=== PATIENT | male | born 1970 | race Hispanic/Latino ===

== ENCOUNTER 2017-06-25 15:19 | Emergency (ER) | payer SELFPAY ==
[2017-06-25] MEDS ORDERED: KETOROLAC TROMETHAMINE 30MG/ML ONE (15:58)
== END 2017-06-25 16:47 | disposition home or self-care (01) ==
LOC: EDH 15:19
DX: S20.212A Contusion of left front wall of thorax, initial encounter (principal); W01.198A Fall on same level from slipping, tripping and stumbling with subsequent striking against other object, initial encounter; Y93.89 Activity, other specified; Y92.89 Other specified places as the place of occurrence of the external cause; Y99.8 Other external cause status
CPT/HCPCS: 71046; 71100; 96372; 99284; J1885

== ENCOUNTER 2020-06-19 | Emergency (ER) | payer OTHER ==
[2020-06-19 00:48] LABS: BASOPHILS % (AUTO) 1.1 % (0.0-5.0); EOSINOPHILS % (AUTO) 0.4 % (0.0-8.0); HEMATOCRIT 29.6 % (42-54); LYMPHOCYTES % (AUTO) 12.5 % (21.0-51.0); MEAN CORPUSCULAR HEMOGLOBIN 25.4 pg (27.0-33.0); MEAN CORPUSCULAR HGB CONC 31.4 g/dL (32.0-36.0); MEAN CORPUSCULAR VOLUME 80.9 fL (79-99); MONOCYTES % (AUTO) 13.9 % (3.0-13.0); NEUTROPHILS % (AUTO) 71.7 % (40.0-77.0); PLATELET COUNT (AUTO) 65 K/uL (130-400); RED BLOOD CELL COUNT(AUTO) 3.66 MIL/uL (4.50-6.20); RED CELL DISTRIBUTION WIDTH 15.9 % (11.0-15.5); WHITE BLOOD COUNT (AUTO) 2.8 K/uL (4.8-10.8)
[2020-06-19 01:05] LABS: BILIRUBIN,TOTAL 1.7 mg/dL (0.2-1.0); CREATININE 0.9 mg/dL (0.5-1.5); POTASSIUM 3.4 mmol/L (3.5-5.1); TOTAL PROTEIN, SERUM 7.6 g/dL (6.0-8.3)
[2020-06-19 01:15] LABS: BAND NEUTROPHILS % (MANUAL) 8 % (0-2); LYMPHOCYTES % (MANUAL) 20 % (22-44); MAN.DIFF COMMENT-IMPRESSION MANUAL DIFFERENTIAL; MONOCYTES % (MANUAL) 8 % (2-9); SEGMENTED NEUTROPHILS % 64 % (40-70)
[2020-06-19 01:16] LABS: PLATELET MORPHOLOGY COMMENT DECREASED
[2020-06-19] MEDS ORDERED: ACETAMINOPHEN 325 MG TAB ONE (01:59)
[2020-06-19] MEDS ORDERED: SODIUM CHLORIDE 0.9% 500ML 500 ML IV ONE (02:02)
[2020-06-19 02:57] LABS: APPEARANCE,URINE Cloudy (CLEAR); BILIRUBIN,URINE Small (NEGATIVE); COLOR,URINE Dark Yellow (YELLOW); GLUCOSE, URINE (UA) Negative (NEGATIVE); KETONES,URINE Trace mg/dL (NEGATIVE); LEUKOCYTE ESTERASE ,URINE Small (NEGATIVE); NITRATE,URINE Negative (NEGATIVE); OCCULT BLOOD,URINE Negative (NEGATIVE); PH,URINE 7.5 (5.0-8.0); PROTEIN,URINE POS 2+ mg/dL (NEGATIVE)
[2020-06-19 03:07] LABS: BACTERIA,URINE Few /HPF (None Seen); MUCUS,URINE Moderate LPF (None Seen); RBC,URINE None Seen /HPF (0-1); RENAL EPITHELIAL CELLS,URINE Moderate /HPF (None Seen); SQUAMOUS EPITHELIAL CELL,UR Moderate /HPF (0-2)
[2020-06-19 04:01] LABS: INR 1.26 (0.85-1.15); PROTHROMBIN TIME 13.4 SEC (9.6-11.6)
[2020-06-19 04:02] LABS: PARTIAL THROMBOPLASTIN TIME 29.1 SEC (26.3-35.5)
[2020-06-19] MEDS ORDERED: LEVOFLOXACIN 750 MG/D5W 150 ML 150 ML ONE (05:22)
== END 2020-06-19 06:19 | disposition home or self-care (01) ==
LOC: EDH
DX: K29.00 Acute gastritis without bleeding (principal); D61.818 Other pancytopenia; K70.9 Alcoholic liver disease, unspecified; F10.20 Alcohol dependence, uncomplicated
CPT/HCPCS: 36415; 71045; 80053; 81001; 82150; 82550; 83690; 85025; 85610; 85730; 93005 ×2; 96365; 99285; J1956; J7040

== ENCOUNTER 2021-03-11 16:25 | Inpatient (IN) | payer OTHER ==
[~2021-03-11] VITALS: Ht 180.3 cm; Wt 100.3 kg
[2021-03-11 17:00] LABS: APPEARANCE,URINE Clear (CLEAR); BILIRUBIN,URINE Small (NEGATIVE); COLOR,URINE Dark Yellow (YELLOW); GLUCOSE, URINE (UA) Negative (NEGATIVE); KETONES,URINE Negative (NEGATIVE); LEUKOCYTE ESTERASE ,URINE Trace (NEGATIVE); NITRATE,URINE Negative (NEGATIVE); OCCULT BLOOD,URINE Large (NEGATIVE); PROTEIN,URINE Trace mg/dL (NEGATIVE)
[2021-03-11] MEDS ORDERED: ALBUTEROL 0.083% 2.5 MG/3 ML INH IH PRN (17:00)
[2021-03-11 17:09] LABS: BACTERIA,URINE Few /HPF (None Seen); SQUAMOUS EPITHELIAL CELL,UR Few /HPF (0-2)
[2021-03-11 17:15] LABS: BASOPHILS % (AUTO) 0.6 % (0.0-5.0); EOSINOPHILS % (AUTO) 0.6 % (0.0-8.0); HEMATOCRIT 29.3 % (42-54); MEAN CORPUSCULAR HGB CONC 33.1 g/dL (32.0-36.0); MEAN CORPUSCULAR VOLUME 87.5 fL (79-99); MONOCYTES % (AUTO) 12.2 % (3.0-13.0); PLATELET COUNT (AUTO) 48 K/uL (130-400); RED BLOOD CELL COUNT(AUTO) 3.35 MIL/uL (4.50-6.20); RED CELL DISTRIBUTION WIDTH 19.5 % (11.0-15.5); WHITE BLOOD COUNT (AUTO) 3.5 K/uL (4.8-10.8)
[2021-03-11 17:29] LABS: CREATININE 0.8 mg/dL (0.5-1.5); POTASSIUM 3.7 mmol/L (3.5-5.1)
[2021-03-11 17:33] LABS: ALBUMIN 2.5 g/dL (3.5-5.0); BILIRUBIN,TOTAL 2.9 mg/dL (0.2-1.0); CRP QUANTITATIVE 19.5 mg/L (0.00-9.0); TOTAL PROTEIN, SERUM 8.6 g/dL (6.0-8.3)
[2021-03-11] MEDS ORDERED: ACETAMINOPHEN WITH CODEINE 1 TAB TAB PO ONE (17:45)
[2021-03-11 17:49] LABS: PLATELET MORPHOLOGY COMMENT MARKED DECREASE
[2021-03-11] MEDS ORDERED: 0.9%NACL 1000ML 1,000 ML IV ONE (18:00)
[2021-03-11 19:12] LABS: BILIRUBIN,DIRECT 1.7 mg/dL (0.0-0.3); INR 1.7 (0.85-1.15); PROTHROMBIN TIME 17.7 SEC (9.6-11.6)
[2021-03-11] MEDS ORDERED: 0.9%NACL 1000ML 1,000 ML IV SCH (19:30)
[2021-03-11] MEDS ORDERED: NITROGLYCERIN 0.4 MG SL TAB SL PRN (19:30)
[2021-03-11] MEDS ORDERED: ONDANSETRON 4MG INJ IV PRN (19:30)
[2021-03-11] MEDS ORDERED: PHARMACY COMMUNICATION MISC PRN (20:00)
[2021-03-11] MEDS ORDERED: THIAMINE HCL 100 MG, FOLIC ACID 1 MG in 0.9%NACL 1000ML 1,000 ML IV SCH (20:00)
[2021-03-11] MEDS ORDERED: IBUPROFEN 200 MG TAB PO PRN (20:00)
[2021-03-11] MEDS ORDERED: LORAZEPAM 2 MG/ML 1 ML VIAL IVP PRN ×2 (20:00)
[2021-03-11] MEDS ORDERED: CHLORDIAZEPOXIDE HCL 25 MG CAP PO PRN ×2 (20:00)
[2021-03-11 20:02] LABS: HEMOGLOBIN A1C 4.7 % (4.0-6.0)
[2021-03-11 20:03] LABS: AMPHET/METH SCREEN,URINE NEGATIVE (NEGATIVE); BARBITURATE SCREEN, URINE NEGATIVE (NEGATIVE); BENZODIAZEPINES SCREEN,URINE NEGATIVE (NEGATIVE); CANNABINOID SCREEN,URINE NEGATIVE (NEGATIVE); COCAINE SCREEN,URINE POSITIVE (NEGATIVE); OPIATE SCREEN,URINE NEGATIVE (NEGATIVE); PHENCYCLIDINE SCREEN,URINE NEGATIVE (NEGATIVE)
[2021-03-11 20:05] LABS: % IRON SATURATION 13.5 % (30-44)
[2021-03-11] MEDS ORDERED: CALCIUM GLUC 1GM 1 GM in 0.9%NACL 100ML 100 ML IV SCH (20:30)
[2021-03-11] MEDS: PANTOPRAZOLE 40 MG/VIAL IVP SCH (20:32)
[2021-03-11] MEDS ORDERED: LACTULOSE 20 GM/30 ML UDCUP PO ONE (21:30)
[2021-03-11] MEDS ORDERED: [UNRECOGNIZED DRUG - OTHER] IV ONE (21:30)
[2021-03-11] MEDS ORDERED: CALCIUM GLUC IV ONE (21:30)
[2021-03-11] MEDS: THIAMINE HCL 100 MG, FOLIC ACID 1 MG, M.V.I. IV [ADULT] 10 ML in 0.9%NACL 1000ML 1,000 ML IV SCH (21:36)
[2021-03-11] MEDS ORDERED: MAGNESIUM 2GM PREMIX 50ML 50 ML IV PRN (22:30)
[2021-03-11] MEDS: ZOSYN 3.375GM +NS 50ML IV SCH (23:09)
[2021-03-11] MEDS: LACTULOSE 20 GM/30 ML UDCUP PO SCH (23:47)
[2021-03-12] VITALS (7 sets, daily range): BP systolic 126–139; BP diastolic 81–88
[2021-03-12] MEDS: LACTULOSE 20 GM/30 ML UDCUP PO SCH ×3 (05:29→19:29)
[2021-03-12] MEDS: ZOSYN 3.375GM +NS 50ML IV SCH ×3 (05:30→20:53)
[2021-03-12 06:12] LABS: BASOPHILS % (AUTO) 0.9 % (0.0-5.0); EOSINOPHILS % (AUTO) 0.9 % (0.0-8.0); HEMATOCRIT 29.4 % (42-54); LYMPHOCYTES % (AUTO) 23.4 % (21.0-51.0); MEAN CORPUSCULAR VOLUME 90.7 fL (79-99); MONOCYTES % (AUTO) 14.2 % (3.0-13.0); PLATELET COUNT (AUTO) 46 K/uL (130-400); RED BLOOD CELL COUNT(AUTO) 3.24 MIL/uL (4.50-6.20); RED CELL DISTRIBUTION WIDTH 19.9 % (11.0-15.5); WHITE BLOOD COUNT (AUTO) 3.4 K/uL (4.8-10.8)
[2021-03-12 06:27] LABS: ALBUMIN 2.4 g/dL (3.5-5.0); BILIRUBIN,TOTAL 2.6 mg/dL (0.2-1.0); CREATININE 0.9 mg/dL (0.5-1.5); MAGNESIUM 2.1 mg/dL (1.80-2.40); POTASSIUM 3.6 mmol/L (3.5-5.1); TOTAL PROTEIN, SERUM 8.2 g/dL (6.0-8.3)
[2021-03-12] MEDS: PANTOPRAZOLE 40 MG/VIAL IVP SCH ×2 (08:17→20:53)
[2021-03-12] MEDS: THIAMINE HCL 100 MG, FOLIC ACID 1 MG, M.V.I. IV [ADULT] 10 ML in 0.9%NACL 1000ML 1,000 ML IV SCH (21:43)
[2021-03-13] VITALS (19 sets, daily range): BP systolic 97–137; BP diastolic 62–93
[2021-03-13] MEDS ORDERED: IBUPROFEN 400 MG TABLET PO ONE
[2021-03-13] MEDS ORDERED: IBUPROFEN 600 MG TABLET ONE (00:03)
[2021-03-13 03:28] LABS: BASOPHILS % (AUTO) 0.8 % (0.0-5.0); EOSINOPHILS % (AUTO) 1.2 % (0.0-8.0); HEMATOCRIT 27.7 % (42-54); LYMPHOCYTES % (AUTO) 30.2 % (21.0-51.0); MEAN CORPUSCULAR HEMOGLOBIN 29.1 pg (27.0-33.0); MEAN CORPUSCULAR HGB CONC 32.5 g/dL (32.0-36.0); MEAN CORPUSCULAR VOLUME 89.6 fL (79-99); MONOCYTES % (AUTO) 17.4 % (3.0-13.0); PLATELET COUNT (AUTO) 45 K/uL (130-400); RED BLOOD CELL COUNT(AUTO) 3.09 MIL/uL (4.50-6.20); WHITE BLOOD COUNT (AUTO) 2.6 K/uL (4.8-10.8)
[2021-03-13 03:39] LABS: ALBUMIN 2.3 g/dL (3.5-5.0); CREATININE 0.9 mg/dL (0.5-1.5)
[2021-03-13 03:53] LABS: BILIRUBIN,TOTAL 2.3 mg/dL (0.2-1.0); POTASSIUM 3.8 mmol/L (3.5-5.1); TOTAL PROTEIN, SERUM 7.8 g/dL (6.0-8.3)
[2021-03-13 04:35] LABS: BAND NEUTROPHILS % (MANUAL) 5 % (0-2); BASOPHILS % (MANUAL) 1 % (0-2); EOSINOPHILS % (MANUAL) 1 % (1-6); LYMPHOCYTES % (MANUAL) 24 % (22-44); MONOCYTES % (MANUAL) 17 % (2-9); SEGMENTED NEUTROPHILS % 52 % (40-70)
[2021-03-13 04:36] LABS: MAN.DIFF COMMENT-IMPRESSION MANUAL DIFFERENTIAL; PLATELET MORPHOLOGY COMMENT MARKED DECREASE
[2021-03-13] MEDS: ZOSYN 3.375GM +NS 50ML IV SCH (05:55)
[2021-03-13] MEDS: LACTULOSE 20 GM/30 ML UDCUP PO SCH ×5 (06:00→23:46)
[2021-03-13 08:14] LABS: HEPATITIS A ANTIBODY IGM Negative (Negative); HEPATITIS B CORE IGM Negative (Negative); HEPATITIS Bs ANTIGEN SCREEN P Negative (Negative)
[2021-03-13] MEDS ORDERED: PHYTONADIONE 10 MG in 0.9%NACL 50ML 50 ML IVPB SCH (08:30)
[2021-03-13] MEDS ORDERED: COMPOUND IV MISC 1 EACH IVSOLN MISC PRN (08:30)
[2021-03-13] MEDS: PANTOPRAZOLE 40 MG/VIAL IVP SCH ×2 (08:34→20:31)
[2021-03-13] MEDS: CEFTRIAXONE 1G VIAL IVP SCH ×2 (08:34→20:31)
[2021-03-13] MEDS: IRON SUCROSE COMPLEX 300 MG in 0.9%NACL 50ML 50 ML IV SCH (09:41)
[2021-03-13] MEDS ORDERED: PROPOFOL 10 MG/ML 20ML VIAL IV ONE (12:00)
[2021-03-13] MEDS ORDERED: LIDOCAINE PF 100MG/5ML (2%) SYRINGE 5ML ONE (12:00)
[2021-03-13] MEDS: THIAMINE HCL 100 MG, FOLIC ACID 1 MG, M.V.I. IV [ADULT] 10 ML in 0.9%NACL 1000ML 1,000 ML IV SCH (20:32)
[2021-03-14 03:34] VITALS: BP 128/78
[2021-03-14 04:10] LABS: BASOPHILS % (AUTO) 0.7 % (0.0-5.0); EOSINOPHILS % (AUTO) 1.5 % (0.0-8.0); HEMATOCRIT 30.2 % (42-54); LYMPHOCYTES % (AUTO) 31.2 % (21.0-51.0); MEAN CORPUSCULAR HEMOGLOBIN 28.6 pg (27.0-33.0); MEAN CORPUSCULAR HGB CONC 30.8 g/dL (32.0-36.0); MEAN CORPUSCULAR VOLUME 92.9 fL (79-99); MONOCYTES % (AUTO) 12.6 % (3.0-13.0); NEUTROPHILS % (AUTO) 53.6 % (40.0-77.0); PLATELET COUNT (AUTO) 58 K/uL (130-400); RED BLOOD CELL COUNT(AUTO) 3.25 MIL/uL (4.50-6.20); WHITE BLOOD COUNT (AUTO) 2.7 K/uL (4.8-10.8)
[2021-03-14 04:18] LABS: INR 1.47 (0.85-1.15); PROTHROMBIN TIME 15.5 SEC (9.6-11.6)
[2021-03-14 04:19] LABS: ALBUMIN 2.4 g/dL (3.5-5.0); BILIRUBIN,TOTAL 1.9 mg/dL (0.2-1.0); CREATININE 0.8 mg/dL (0.5-1.5); MAGNESIUM 1.9 mg/dL (1.80-2.40); PHOSPHORUS 3.5 mg/dL (2.5-4.9); POTASSIUM 3.5 mmol/L (3.5-5.1); TOTAL PROTEIN, SERUM 8.2 g/dL (6.0-8.3)
[2021-03-14 04:20] LABS: PARTIAL THROMBOPLASTIN TIME 40.7 SEC (26.3-35.5)
[2021-03-14] MEDS: LACTULOSE 20 GM/30 ML UDCUP PO SCH ×3 (05:48→17:33)
[2021-03-14 07:30] VITALS: BP 133/83
[2021-03-14] MEDS: CEFTRIAXONE 1G VIAL IVP SCH (10:02)
[2021-03-14] MEDS: PANTOPRAZOLE 40 MG/VIAL IVP SCH (10:02)
[2021-03-14] MEDS: IRON SUCROSE COMPLEX 300 MG in 0.9%NACL 50ML 50 ML IV SCH (10:06)
[2021-03-14 11:00] VITALS: BP 118/75
[2021-03-14] MEDS ORDERED: THIA500T3 PO (14:01)
[2021-03-14] MEDS ORDERED: LACT PO (14:01)
[2021-03-14] MEDS ORDERED: PANT40TA54 PO (14:01)
[2021-03-14] MEDS ORDERED: CIPR500T10 PO (14:01)
[2021-03-14 16:00] VITALS: BP 111/72
== END 2021-03-14 18:45 | disposition home or self-care (01) | DRG 445 ==
LOC: EDH 16:25 → EDHIP 16:26 → 4AH 03-12 00:26
PROVIDERS: ADMIT Internal Medicine; ATTEND Internal Medicine
PROC: 06L38CZ Occlusion of Esophageal Vein with Extraluminal Device, Via Natural or Artificial Opening Endoscopic (ICD-10-PCS; principal; 2021-03-13)
DX: K80.20 Calculus of gallbladder without cholecystitis without obstruction (principal); R65.10 Systemic inflammatory response syndrome (SIRS) of non-infectious origin without acute organ dysfunction; D61.818 Other pancytopenia; D68.9 Coagulation defect, unspecified; E87.1 Hypo-osmolality and hyponatremia; I85.10 Secondary esophageal varices without bleeding; D68.4 Acquired coagulation factor deficiency; K76.6 Portal hypertension; K70.30 Alcoholic cirrhosis of liver without ascites; K72.90 Hepatic failure, unspecified without coma; E83.51 Hypocalcemia; F14.90 Cocaine use, unspecified, uncomplicated; E66.9 Obesity, unspecified; Z68.32 Body mass index [BMI] 32.0-32.9, adult; F10.10 Alcohol abuse, uncomplicated; Z20.822 Contact with and (suspected) exposure to COVID-19; I10 Essential (primary) hypertension; R79.89 Other specified abnormal findings of blood chemistry; R16.2 Hepatomegaly with splenomegaly, not elsewhere classified; K57.90 Diverticulosis of intestine, part unspecified, without perforation or abscess without bleeding; D50.9 Iron deficiency anemia, unspecified; R19.5 Other fecal abnormalities; K31.89 Other diseases of stomach and duodenum; I86.4 Gastric varices; K44.9 Diaphragmatic hernia without obstruction or gangrene; Z56.0 Unemployment, unspecified; Z83.3 Family history of diabetes mellitus; Z82.49 Family history of ischemic heart disease and other diseases of the circulatory system
CPT/HCPCS: 36415; 36600; 43244; 71045; 74176; 80053; 80061; 80074; 80305; 81001; 82140; 82150; 82248; 82270; 82306; 82330; 82607; 82728; 82746; 83036; 83540; 83550; 83605; 83690; 83735; 83930; 83935; 84100; 84145; 84295; 84300; 85025; 85610; 85730; 86140; 86757; 86850; 86900; 86901; 87040; 87088; 87635; 87804; 93005; 94640; C9113; C9803; G0378; J0610; J0696; J1756; J2001; J2543; J2704; J3411; J3430; J3475; J3490; J7030

== ENCOUNTER 2022-09-18 15:58 | Inpatient (IN) | payer BC ==
[~2022-09-18] VITALS: Ht 180.3 cm; Wt 118.0 kg
[~2022-09-18 15:58] MED LIST: CIPR500T10 PO; LACT PO; PANT40TA54 PO; THIA500T3 PO
[2022-09-18 16:46] LABS: BASOPHILS % (AUTO) 0.7 % (0.0-5.0); EOSINOPHILS % (AUTO) 2.9 % (0.0-8.0); HEMATOCRIT 22.3 % (42-54); LYMPHOCYTES % (AUTO) 16.7 % (21.0-51.0); MEAN CORPUSCULAR HEMOGLOBIN 33.2 pg (27.0-33.0); MEAN CORPUSCULAR HGB CONC 34.1 g/dL (32.0-36.0); MEAN CORPUSCULAR VOLUME 97.4 fL (79-99); MONOCYTES % (AUTO) 12.5 % (3.0-13.0); NEUTROPHILS % (AUTO) 66.7 % (40.0-77.0); PLATELET COUNT (AUTO) 41 K/uL (130-400); RED BLOOD CELL COUNT(AUTO) 2.29 MIL/uL (4.50-6.20); RED CELL DISTRIBUTION WIDTH 18.5 % (11.0-15.5); WHITE BLOOD COUNT (AUTO) 5.5 K/uL (4.8-10.8)
[2022-09-18 16:56] LABS: ALBUMIN 2.1 g/dL (3.5-5.0); CREATININE 1.7 mg/dL (0.5-1.5); TOTAL PROTEIN, SERUM 7.1 g/dL (6.0-8.3)
[2022-09-18] MEDS ORDERED: POTASSIUM BICARB/CIT AC 25 MEQ TABLET.EFF PO SCH (17:30)
[2022-09-18 17:50] LABS: PLATELET MORPHOLOGY COMMENT MARKED DECREASE
[2022-09-18 17:52] LABS: INR 1.75 (0.85-1.15); PROTHROMBIN TIME 18.5 SEC (9.6-11.6)
[2022-09-18 17:53] LABS: PARTIAL THROMBOPLASTIN TIME 31.6 SEC (26.3-35.5)
[2022-09-18 18:43] LABS: APPEARANCE,URINE CLOUDY (CLEAR); BILIRUBIN,URINE NEGATIVE (NEGATIVE); COLOR,URINE YELLOW (YELLOW); GLUCOSE, URINE (UA) NEGATIVE (NEGATIVE); KETONES,URINE NEGATIVE (NEGATIVE); LEUKOCYTE ESTERASE ,URINE NEGATIVE Leu/uL (NEGATIVE); NITRATE,URINE NEGATIVE (NEGATIVE); OCCULT BLOOD,URINE LARGE (NEGATIVE); PH,URINE 5.5 (5.0-8.0); PROTEIN,URINE 20 mg/dL (NEGATIVE)
[2022-09-18 18:53] LABS: BACTERIA,URINE FEW /HPF (None Seen); RBC,URINE TNTC /HPF (0-1); SQUAMOUS EPITHELIAL CELL,UR RARE /HPF (0-2); YEAST,URINE BUDDING FEW /HPF (None Seen)
[2022-09-18] MEDS ORDERED: POTASSIUM CHLORIDE 20MEQ/100ML 100 ML IV PRN (19:00)
[2022-09-18] MEDS ORDERED: KCL 20 MEQ ERTAB PO PRN (19:00)
[2022-09-18] MEDS ORDERED: MAGNESIUM 2GM PREMIX 50ML 50 ML IV PRN (19:00)
[2022-09-18] MEDS ORDERED: HYDROCODONE/ACETAMINOPHEN 5/325 MG TAB PO PRN (19:00)
[2022-09-18] MEDS ORDERED: ACETAMINOPHEN 325 MG TAB PO PRN ×2 (19:00)
[2022-09-18] MEDS ORDERED: ONDANSETRON 4MG INJ IV PRN (19:00)
[2022-09-18] MEDS ORDERED: HYDROMORPHONE 0.5 MG SYG (0.5MG/0.5ML) IV PRN (19:30)
[2022-09-18] MEDS: FUROSEMIDE 40 MG TABLET PO SCH (19:38)
[2022-09-19] VITALS (17 sets, daily range): BP systolic 110–162; BP diastolic 66–89
[2022-09-19] MEDS ORDERED: PHARMACY COMMUNICATION MISC PRN (00:30)
[2022-09-19] MEDS ORDERED: LORAZEPAM 2 MG/ML 1 ML VIAL IVP PRN (00:30)
[2022-09-19] MEDS: CHLORDIAZEPOXIDE HCL 25 MG CAP PO SCH ×3 (00:38→16:51)
[2022-09-19 06:41] LABS: BASOPHILS % (AUTO) 0.6 % (0.0-5.0); EOSINOPHILS % (AUTO) 3.7 % (0.0-8.0); LYMPHOCYTES % (AUTO) 19.4 % (21.0-51.0); MEAN CORPUSCULAR HEMOGLOBIN 33.5 pg (27.0-33.0); MEAN CORPUSCULAR HGB CONC 34.3 g/dL (32.0-36.0); MEAN CORPUSCULAR VOLUME 97.6 fL (79-99); MONOCYTES % (AUTO) 14.2 % (3.0-13.0); NEUTROPHILS % (AUTO) 61.9 % (40.0-77.0); PLATELET COUNT (AUTO) 43 K/uL (130-400); RED BLOOD CELL COUNT(AUTO) 2.12 MIL/uL (4.50-6.20); RED CELL DISTRIBUTION WIDTH 18.9 % (11.0-15.5); WHITE BLOOD COUNT (AUTO) 4.7 K/uL (4.8-10.8)
[2022-09-19 06:48] LABS: CREATININE 1.7 mg/dL (0.5-1.5); POTASSIUM 3.6 mmol/L (3.5-5.1)
[2022-09-19 06:50] LABS: HEMATOCRIT 20.7 % (42-54)
[2022-09-19 06:52] LABS: % IRON SATURATION 22.5 % (30-44)
[2022-09-19 08:09] LABS: MAGNESIUM 1.7 mg/dL (1.80-2.40); PHOSPHORUS 3.7 mg/dL (2.5-4.9)
[2022-09-19] MEDS ORDERED: FAMOTIDINE 20MG TAB PO SCH (09:00)
[2022-09-19] MEDS: FUROSEMIDE 40 MG TABLET PO SCH (09:13)
[2022-09-19] MEDS ORDERED: ALBUMIN (HUMAN) 25% 200 ML IV SCH (12:57)
[2022-09-19 14:02] LABS: APPEARANCE BODY FLUID SLIGHTLY CLOUDY (CLEAR); COLOR,BODY FLUID YELLOW (LT YELLOW); SPECIMENTYPE,BODY FLUID ASCITES; TOTAL VOLUME,BODY FLUID 6000 mL
[2022-09-19 14:08] LABS: BODY FLUID RBC 2015 /cu. mm.; BODY FLUID WBC 228 /cu. mm.
[2022-09-19 14:13] LABS: BF LYMPHOCYTE 55 %; BF MESOTHELIAL 4 %; BF MONOCYTE 17 %
[2022-09-19] MEDS: PANTOPRAZOLE 40 MG TAB DR PO SCH (16:51)
[2022-09-19] MEDS ORDERED: LIDOCAINE HCL 1% 20 ML VIAL ONE (17:21)
[2022-09-19] MEDS: LACTULOSE 20 GM/30 ML UDCUP PO SCH (20:57)
[2022-09-19] MEDS: RIFAXIMIN 550 MG TABLET PO SCH (20:57)
[2022-09-20] VITALS (16 sets, daily range): BP systolic 113–147; BP diastolic 65–85
[2022-09-20] MEDS: CHLORDIAZEPOXIDE HCL 25 MG CAP PO SCH ×3 (00:09→16:45)
[2022-09-20 05:56] LABS: BASOPHILS % (AUTO) 0.5 % (0.0-5.0); EOSINOPHILS % (AUTO) 3.4 % (0.0-8.0); LYMPHOCYTES % (AUTO) 20.9 % (21.0-51.0); MEAN CORPUSCULAR HEMOGLOBIN 33.3 pg (27.0-33.0); MEAN CORPUSCULAR HGB CONC 34.3 g/dL (32.0-36.0); MEAN CORPUSCULAR VOLUME 97.1 fL (79-99); MONOCYTES % (AUTO) 12.6 % (3.0-13.0); NEUTROPHILS % (AUTO) 62.1 % (40.0-77.0); PLATELET COUNT (AUTO) 36 K/uL (130-400); RED BLOOD CELL COUNT(AUTO) 2.07 MIL/uL (4.50-6.20); RED CELL DISTRIBUTION WIDTH 18.6 % (11.0-15.5); WHITE BLOOD COUNT (AUTO) 3.9 K/uL (4.8-10.8)
[2022-09-20 05:59] LABS: HEMATOCRIT 20.1 % (42-54)
[2022-09-20 06:16] LABS: B-TYPE NATRIURETIC PEPTIDE 86 pg/mL (0-100)
[2022-09-20 06:19] LABS: ALBUMIN 2.2 g/dL (3.5-5.0); BILIRUBIN,DIRECT 1.8 mg/dL (0.0-0.3); CREATININE 1.8 mg/dL (0.5-1.5); POTASSIUM 3.2 mmol/L (3.5-5.1); TOTAL PROTEIN, SERUM 6.3 g/dL (6.0-8.3)
[2022-09-20] MEDS ORDERED: LIDOCAINE PF 100MG/5ML (2%) SYRINGE 5ML ONE (06:24)
[2022-09-20] MEDS ORDERED: PROPOFOL 10 MG/ML 20ML VIAL IV ONE (06:24)
[2022-09-20] MEDS: FUROSEMIDE 40 MG TABLET PO SCH (09:18)
[2022-09-20] MEDS: LACTULOSE 20 GM/30 ML UDCUP PO SCH ×2 (09:18→20:35)
[2022-09-20] MEDS: RIFAXIMIN 550 MG TABLET PO SCH ×2 (09:18→20:35)
[2022-09-20] MEDS: PANTOPRAZOLE 40 MG TAB DR PO SCH ×2 (09:21→16:45)
[2022-09-20 09:54] LABS: HEMATOCRIT 20.6 % (42-54)
[2022-09-20] MEDS ORDERED: IRON SUCROSE COMPLEX 300 MG in 0.9% NACL 250ML 250 ML IV SCH (10:00)
[2022-09-20] MEDS: POTASSIUM CHLORIDE 10% ELIXIR 20 MEQ/15 ML UDCUP PO PRN ×3 (14:40→19:23)
[2022-09-21] MEDS: CHLORDIAZEPOXIDE HCL 25 MG CAP PO SCH ×2 (00:30→09:01)
[2022-09-21 03:56] LABS: CREATININE,URINE RANDOM 56 mg/dL (30-135); SODIUM,URINE RANDOM 21 mmol/l (40-220)
[2022-09-21 04:00] VITALS: BP 142/76
[2022-09-21 04:46] LABS: HEMATOCRIT 21.1 % (42-54); MEAN CORPUSCULAR HGB CONC 33.6 g/dL (32.0-36.0); RED BLOOD CELL COUNT(AUTO) 2.09 MIL/uL (4.50-6.20); RED CELL DISTRIBUTION WIDTH 18.2 % (11.0-15.5); WHITE BLOOD COUNT (AUTO) 4.3 K/uL (4.8-10.8)
[2022-09-21 05:15] LABS: ALBUMIN 2.1 g/dL (3.5-5.0); CREATININE 1.9 mg/dL (0.5-1.5); POTASSIUM 4.1 mmol/L (3.5-5.1); TOTAL PROTEIN, SERUM 6.4 g/dL (6.0-8.3)
[2022-09-21] MEDS: PANTOPRAZOLE 40 MG TAB DR PO SCH (06:58)
[2022-09-21 08:00] VITALS: BP 126/69
[2022-09-21] MEDS: RIFAXIMIN 550 MG TABLET PO SCH (09:00)
[2022-09-21] MEDS: LACTULOSE 20 GM/30 ML UDCUP PO SCH (09:01)
[2022-09-21] MEDS: FUROSEMIDE 40 MG TABLET PO SCH (09:01)
[2022-09-21] MEDS ORDERED: FURO40TA7 PO (10:43)
== END 2022-09-21 11:40 | disposition home or self-care (01) | DRG 432 ==
LOC: EDH 15:58 → EDHIP 18:22 → 4BH 09-19 00:08
PROVIDERS: ADMIT Internal Medicine; ATTEND Internal Medicine
PROC: 0W9G3ZZ Drainage of Peritoneal Cavity, Percutaneous Approach (ICD-10-PCS; 2022-09-19)
PROC: 0DJ08ZZ Inspection of Upper Intestinal Tract, Via Natural or Artificial Opening Endoscopic (ICD-10-PCS; principal; 2022-09-20)
DX: K70.31 Alcoholic cirrhosis of liver with ascites (principal); K85.90 Acute pancreatitis without necrosis or infection, unspecified; D62 Acute posthemorrhagic anemia; N17.9 Acute kidney failure, unspecified; E44.0 Moderate protein-calorie malnutrition; I85.10 Secondary esophageal varices without bleeding; K76.6 Portal hypertension; K92.2 Gastrointestinal hemorrhage, unspecified; Z20.822 Contact with and (suspected) exposure to COVID-19; I12.9 Hypertensive chronic kidney disease with stage 1 through stage 4 chronic kidney disease, or unspecified chronic kidney disease; F10.10 Alcohol abuse, uncomplicated; E87.6 Hypokalemia; E11.22 Type 2 diabetes mellitus with diabetic chronic kidney disease; D69.6 Thrombocytopenia, unspecified; N18.9 Chronic kidney disease, unspecified; Z56.0 Unemployment, unspecified
CPT/HCPCS: 36415; 43235; 49083; 76705; 80048; 80053; 80076; 81001; 82140; 82270; 82570; 82948; 83540; 83550; 83690; 83735; 83880; 83935; 84100; 84132; 84300; 85014; 85018; 85025; 85027; 85610; 85730; 86850; 86900; 86901; 86923; 87071; 87088; 87205; 87426; 89051; A4606; C1729; G0378; J1756; J2001; J2704; J3475; J7030; J7050; P9046

== ENCOUNTER 2022-09-22 16:25 | Observation (INO) | payer BC ==
[~2022-09-22] VITALS: Ht 180.3 cm; Wt 119.2 kg
[~2022-09-22 16:25] MED LIST changes: +FURO40TA7 PO
[2022-09-22 18:17] LABS: BASOPHILS % (AUTO) 1.1 % (0.0-5.0); EOSINOPHILS % (AUTO) 2.7 % (0.0-8.0); HEMATOCRIT 21.3 % (42-54); LYMPHOCYTES % (AUTO) 17.5 % (21.0-51.0); MEAN CORPUSCULAR HEMOGLOBIN 33.6 pg (27.0-33.0); MEAN CORPUSCULAR HGB CONC 33.3 g/dL (32.0-36.0); MEAN CORPUSCULAR VOLUME 100.9 fL (79-99); MONOCYTES % (AUTO) 13.7 % (3.0-13.0); NEUTROPHILS % (AUTO) 64.7 % (40.0-77.0); PLATELET COUNT (AUTO) 40 K/uL (130-400); RED BLOOD CELL COUNT(AUTO) 2.11 MIL/uL (4.50-6.20); RED CELL DISTRIBUTION WIDTH 17.8 % (11.0-15.5); WHITE BLOOD COUNT (AUTO) 3.7 K/uL (4.8-10.8)
[2022-09-22 18:32] LABS: INR 1.91 (0.85-1.15); PROTHROMBIN TIME 20.1 SEC (9.6-11.6)
[2022-09-22 18:39] LABS: ALBUMIN 1.9 g/dL (3.5-5.0); CREATININE 1.9 mg/dL (0.5-1.5); TOTAL PROTEIN, SERUM 6.3 g/dL (6.0-8.3)
[2022-09-22] MEDS ORDERED: POTASSIUM BICARB/CIT AC 25 MEQ TABLET.EFF PO STA (18:55)
[2022-09-22] MEDS ORDERED: POTASSIUM BICARB/CIT AC 25 MEQ TABLET.EFF PO ONE (19:00)
[2022-09-22] MEDS ORDERED: ONDANSETRON 4MG INJ IV PRN (19:00)
[2022-09-23] MEDS: LACTULOSE 20 GM/30 ML UDCUP PO SCH ×2 (00:59→08:59)
[2022-09-23 03:10] VITALS: BP 136/84
[2022-09-23 07:00] VITALS: BP 107/81
[2022-09-23] MEDS ORDERED: PANTOPRAZOLE 40 MG TAB DR PO SCH (09:00)
[2022-09-23 09:06] LABS: BASOPHILS % (AUTO) 0.5 % (0.0-5.0); EOSINOPHILS % (AUTO) 2.5 % (0.0-8.0); HEMATOCRIT 22.5 % (42-54); LYMPHOCYTES % (AUTO) 19.2 % (21.0-51.0); MEAN CORPUSCULAR HEMOGLOBIN 33.5 pg (27.0-33.0); MEAN CORPUSCULAR HGB CONC 32.9 g/dL (32.0-36.0); MEAN CORPUSCULAR VOLUME 101.8 fL (79-99); MONOCYTES % (AUTO) 13.4 % (3.0-13.0); NEUTROPHILS % (AUTO) 63.9 % (40.0-77.0); PLATELET COUNT (AUTO) 40 K/uL (130-400); RED BLOOD CELL COUNT(AUTO) 2.21 MIL/uL (4.50-6.20); RED CELL DISTRIBUTION WIDTH 17.8 % (11.0-15.5); WHITE BLOOD COUNT (AUTO) 3.7 K/uL (4.8-10.8)
[2022-09-23 09:24] LABS: ALBUMIN 2.2 g/dL (3.5-5.0); CREATININE 1.7 mg/dL (0.5-1.5); POTASSIUM 3.6 mmol/L (3.5-5.1); TOTAL PROTEIN, SERUM 6.8 g/dL (6.0-8.3)
[2022-09-23 11:46] VITALS: BP 115/73
[2022-09-23] MEDS ORDERED: POTASSIUM CHLORIDE 10MEQ SR TAB PO SCH (13:00)
== END 2022-09-23 15:23 | disposition home or self-care (01) ==
LOC: EDH 16:25 → INTOOBSV 18:56 → EDHIP 18:56 → 3CH 09-23 03:10
PROVIDERS: ADMIT Hospitalist; ATTEND Hospitalist
DX: K70.31 Alcoholic cirrhosis of liver with ascites (principal); D61.818 Other pancytopenia; K76.7 Hepatorenal syndrome; E87.6 Hypokalemia; E66.01 Morbid (severe) obesity due to excess calories; F10.20 Alcohol dependence, uncomplicated; E72.20 Disorder of urea cycle metabolism, unspecified; E43 Unspecified severe protein-calorie malnutrition; N17.0 Acute kidney failure with tubular necrosis; N18.9 Chronic kidney disease, unspecified; Q33.3 Agenesis of lung; R21 Rash and other nonspecific skin eruption; Z93.3 Colostomy status; Z91.199 Patient's noncompliance with other medical treatment and regimen due to unspecified reason; Z79.899 Other long term (current) drug therapy; Z98.890 Other specified postprocedural states; Z86.718 Personal history of other venous thrombosis and embolism; Z68.36 Body mass index [BMI] 36.0-36.9, adult
CPT/HCPCS: 99284; 80053 ×2; 83880; 82140; 83690; 85025 ×2; 85610; 85730; 83605 ×2; 36415 ×2; 93970; 86850; 86900; 86901; 76705; G0378 ×3